=== PATIENT | male | born 2000 | race Two or more races ===

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

== ENCOUNTER → 2022-03-10 | Day surgery (SDC) | payer OTHER ==
[~2022-03-10] MED LIST: PERCOCET 5-3251 EACH PO
== END | disposition home or self-care (01) ==
LOC: ADM 03-07 09:00 → CIR.AMB 06:31
PROVIDERS: ATTEND Surgery
DX: K60.3 Anal fistula (principal); K62.89 Other specified diseases of anus and rectum; Z20.822 Contact with and (suspected) exposure to COVID-19

== ENCOUNTER 2024-03-05 12:40 | Inpatient (IN) | payer OTHER ==
[~2024-03-05] VITALS: Ht 172.7 cm; Wt 65.8 kg
[2024-03-05] MEDS ORDERED: FAMOTIDINE/PF 20 MG in 0.9 % SODIUM CHLORIDE 8 ML IV PUSH STA (13:56)
[2024-03-05] MEDS ORDERED: METHYLPREDNISOLONE SOD SUCC 125 MG VIAL IV ONE ×2 (14:00→20:00)
[2024-03-05] MEDS ORDERED: 0.9 % SODIUM CHLORIDE 1,000 ML IV SCH ×2 (14:00→20:00)
[2024-03-05] MEDS ORDERED: FAMOTIDINE/PF 20 MG/2 ML VIAL ONE (14:11)
[2024-03-05] MEDS ORDERED: METHYLPREDNISOLONE SOD SUCC 125 MG VIAL ONE (14:11)
[2024-03-05] MEDS ORDERED: BARIUM SULFATE 450 ML ORAL.SUSP PO ONE (14:13)
[2024-03-05 14:41] LABS: HEMATOCRIT 44.8 % (39.0-48.0); MEAN CELL VOLUME 89.8 fL (80.0-100.00); MEAN CORPUSCULAR HEMOGLOBIN 30.1 pg (27.00-32.0); MEAN CORPUSCULAR HGB CONC 33.5 g/dl (32.0-36.0); PLATELET COUNT 292 K/uL (150-450); RED BLOOD COUNT 4.99 M/uL (4.00-6.00); RED CELL DISTRIBUTION WIDTH 12.6 % (11.5-14.5)
[2024-03-05 15:04] LABS: ALBUMIN 3.9 gm/dL (3.4-5.0); BILIRUBIN TOTAL 0.57 mg/dL (0.3-1.2); CALCIUM 10.1 mg/dL (8.5-10.1); CREATININE SERUM 1.06 mg/dL (0.70-1.30); GFR 88.19; GLOBULINA 5.1 G/DL (2.4-3.5); POTASSIUM 4.54 mEq/L (3.5-5.1)
[2024-03-05] MEDS ORDERED: METRONIDAZOLE/SODIUM CHLORIDE 100 ML IV SCH (19:52)
[2024-03-05] MEDS ORDERED: PANTOPRAZOLE SODIUM 40 MG/VIAL VIAL IV SCH (19:53)
[2024-03-05] MEDS ORDERED: HYOSCYAMINE SULFATE 0.125 MG TAB.SUBL PO ONE (20:00)
[2024-03-05] MEDS ORDERED: ONDANSETRON HCL 4 MG in 0.9 % SODIUM CHLORIDE 50 ML IV PRN (20:00)
[2024-03-05] MEDS ORDERED: ACETAMINOPHEN 500 MG GEL..CAP PO PRN (20:00)
[2024-03-05] MEDS ORDERED: MEPERIDINE HCL/PF 25 MG/ML VIAL IM PRN (20:00)
[2024-03-05] MEDS ORDERED: CIPROFLOXACIN IN 5 % DEXTROSE 200 ML IV SCH (21:00)
[2024-03-05 21:55] LABS: INR 1.27; PARTIAL THROMBOPLASTIN TIME 29.9 SECONDS (22.0-34.0); PROTHROMBIN TIME 13.1 SECONDS (9.0-11.5)
[2024-03-05 21:57] LABS: C-REACTIVE PROTEIN 15.1 MG/DL (0.00-0.29)
[2024-03-05 23:11] LABS: PH,URINE 6.5 (5.0-8.0); URINE APPEARANCE Clear; URINE BILIRRUBIN Negative (NEGATIVE); URINE BLOOD Negative; URINE COLOR Yellow; URINE GLUCOSE Negative (NEGATIVE); URINE LEUKOCYTE Negative; URINE NITRATE Negative; URINE PROTEIN Negative (NEGATIVE); URINE UROBILINOGEN 0.2 E.U./dl
[2024-03-05 23:15] LABS: URINE EPITHELIAL CELLS 1.5 uL (0.0-38.8); URINE WBC 2.6 uL (0.0-23.2)
[2024-03-05 23:21] LABS: URINE BACTERIA 1.2 uL (0.0-1933); URINE RBC 1.2 uL (0.0-20.8)
[2024-03-07 06:17] LABS: HEMATOCRIT 36.8 % (39.0-48.0); HEMOGLOBIN 12.4 g/dL (13-16.00); MEAN CELL VOLUME 87.7 fL (80.0-100.00); MEAN CORPUSCULAR HEMOGLOBIN 29.5 pg (27.00-32.0); MEAN CORPUSCULAR HGB CONC 33.7 g/dl (32.0-36.0); PLATELET COUNT 281 K/uL (150-450); RED CELL DISTRIBUTION WIDTH 12.4 % (11.5-14.5)
[2024-03-07 06:58] LABS: ALBUMIN 3.2 gm/dL (3.4-5.0); BILIRUBIN TOTAL 0.37 mg/dL (0.3-1.2); CALCIUM 8.7 mg/dL (8.5-10.1); CREATININE SERUM 0.92 mg/dL (0.70-1.30); GFR 103.85; GLOBULINA 3.4 G/DL (2.4-3.5); MAGNESIUM 2.2 mg/dL (1.8-2.4); POTASSIUM 4.13 mEq/L (3.5-5.1); TOTAL PROTEIN 6.6 gm/dL (6.4-8.2)
[2024-03-09] MEDS ORDERED: METHYLPREDNISOLONE SOD SUCC 40 MG VIAL IV SCH (13:13)
[2024-03-09] MEDS ORDERED: TUBERCULIN,PURIF.PROT.DERIV. 10 SKIN.TEST SKIN.TEST ID NR (13:15)
[2024-03-10] MEDS ORDERED: DIATRIZOATE MEGLUMINE, SODIUM 30 ML BOTTLE PO ONE (06:00)
[2024-03-10 07:13] LABS: HEMATOCRIT 37.7 % (39.0-48.0); MEAN CELL VOLUME 86.8 fL (80.0-100.00); MEAN CORPUSCULAR HEMOGLOBIN 29.8 pg (27.00-32.0); MEAN CORPUSCULAR HGB CONC 34.4 g/dl (32.0-36.0); PLATELET COUNT 278 K/uL (150-450); RED BLOOD COUNT 4.34 M/uL (4.00-6.00); RED CELL DISTRIBUTION WIDTH 12.6 % (11.5-14.5)
[2024-03-10 07:50] LABS: ALBUMIN 3.1 gm/dL (3.4-5.0); BILIRUBIN TOTAL 0.23 mg/dL (0.3-1.2); CREATININE SERUM 0.86 mg/dL (0.70-1.30); GFR 112.26; GLOBULINA 3.5 G/DL (2.4-3.5); MAGNESIUM 2.1 mg/dL (1.8-2.4); PHOSPHOROUS 3.6 mg/dL (2.5-4.9); POTASSIUM 4.08 mEq/L (3.5-5.1); TOTAL PROTEIN 6.6 gm/dL (6.4-8.2)
[2024-03-10 07:53] LABS: C-REACTIVE PROTEIN 4.7 MG/DL (0.00-0.29)
[2024-03-10] MEDS ORDERED: DIATRIZOATE MEGLUMINE, SODIUM 30 ML BOTTLE PO NR (08:00)
[2024-03-11 05:06] LABS: hav igm Negative (Negative); hcv Non Reactive (Non Reactive); hep b c Negative (Negative)
[2024-03-12] MEDS ORDERED: METRONIDAZOLE500 MG PO (14:11)
[2024-03-12] MEDS ORDERED: CIPRO500 MG PO (14:11)
[2024-03-12] MEDS ORDERED: PEPCID AC20 MG PO (14:11)
[2024-03-12] MEDS ORDERED: INTESTINEX680 M1 PO (14:12)
[2024-03-12] MEDS ORDERED: PREDNISONE20 MG PO (14:14)
[2024-03-12 14:27] LABS: HEMATOCRIT 44.1 % (39.0-48.0); MEAN CELL VOLUME 86.9 fL (80.0-100.00); MEAN CORPUSCULAR HEMOGLOBIN 29.5 pg (27.00-32.0); PLATELET COUNT 330 K/uL (150-450); RED BLOOD COUNT 5.07 M/uL (4.00-6.00); RED CELL DISTRIBUTION WIDTH 12.8 % (11.5-14.5)
[2024-03-12 15:10] LABS: ERYTHROCYTE SEDIMENTATION RATE 55 mm/hr
[2024-03-12 15:14] LABS: CALCIUM 9.4 mg/dL (8.5-10.1); CREATININE SERUM 0.98 mg/dL (0.70-1.30); GFR 96.55; POTASSIUM 4.13 mEq/L (3.5-5.1)
[2024-03-12 15:43] LABS: C-REACTIVE PROTEIN 1.26 MG/DL (0.00-0.29)
== END 2024-03-12 19:28 | disposition home or self-care (01) | DRG 385 ==
LOC: ER 12:41 → MEDJ 20:17
PROVIDERS: General Practice; Internal Medicine; Internal Medicine Gastroenterology; ADMIT Internal Medicine; ATTEND Internal Medicine
PROC: BW21YZZ Computerized Tomography (CT Scan) of Abdomen and Pelvis using Other Contrast (ICD-10-PCS; principal; 2024-03-05)
PROC: BW21YZZ Computerized Tomography (CT Scan) of Abdomen and Pelvis using Other Contrast (ICD-10-PCS; 2024-03-10)
DX: K50.014 Crohn's disease of small intestine with abscess (principal); K65.1 Peritoneal abscess; K52.9 Noninfective gastroenteritis and colitis, unspecified